=== PATIENT | male | born 1970 | race Caucasian/White ===

== ENCOUNTER 2016-09-19 22:20 | Emergency (ER) | payer BC, MEDICAID ==
[~2016-09-19] VITALS: Ht 175.3 cm; Wt 113.4 kg
[2016-09-19 22:36] VITALS: BP 150/87
[2016-09-19 23:10] LABS: Basophils # (auto) 0 uL; Basophils % (auto) 0.3 % (0.0-2.0); Eosinophils # (auto) 0.1 uL; Eosinophils % (auto) 0.5 % (0.0-7.0); Hematocrit 55.7 % (41.0-53.0); Lymphocytes # (auto) 0.9 uL; Lymphocytes % (auto) 7.6 % (10.0-50.0); Mean Corpuscular Hemoglobin 32.5 pg (28.0-32.0); Mean Corpuscular Hgb Conc. 32.3 g/dL (32.0-36.0); Mean Corpuscular Volume 100.4 fL (80.0-100.0); Mean Platelet Volume 8.5 fL (7.4-10.4); Monocytes # (auto) 1.1 uL; Neutrophils # (auto) 10.2 uL; Neutrophils % (auto) 82.6 % (37.0-80.0); Platelet Count (auto) 230 10^3/uL (140-450); Red Cell Distribution Width 12.8 % (11.6-16.0); White Blood Cell 12.3 10^3/uL (4.4-10.8)
[2016-09-19 23:35] LABS: Amylase 169 U/L (25-115); Anion Gap 5 (5-15); Aspartate Aminotransferase 24 U/L (15-37); BUN/Creatinine Ratio 9.9; Blood Urea Nitrogen 8 mg/dL (7-18); Carbon Dioxide 23 mmol/L (21-32); Chloride 104 mmol/L (98-107); GFR African American 133 mL/min; GFR Non-African American 110 mL/min; Glucose 114 mg/dL (74-106); Potassium 3.6 mmol/L (3.5-5.1); Sodium 132 mmol/L (136-145)
[2016-09-19 23:40] LABS: Alkaline Phosphatase 88 U/L (45-117); Total Protein 8.5 g/dL (6.4-8.2)
== END 2016-09-19 23:43 | disposition left against medical advice (07) ==
LOC: ER 22:25
DX: R10.9 Unspecified abdominal pain (principal); R07.9 Chest pain, unspecified; R11.0 Nausea; Z53.21 Procedure and treatment not carried out due to patient leaving prior to being seen by health care provider
CPT/HCPCS: 36415; 80053; 82150; 83690; 84484; 85025

== ENCOUNTER 2016-11-20 19:08 | Emergency (ER) | payer BC, MEDICAID ==
[~2016-11-20] VITALS: Ht 175.3 cm; Wt 117.9 kg
[2016-11-20 19:37] VITALS: BP 149/104
[2016-11-20 20:33] LABS: Basophils # (auto) 0 uL; Basophils % (auto) 0.5 % (0.0-2.0); Eosinophils # (auto) 0.2 uL; Hematocrit 54.2 % (41.0-53.0); Hemoglobin 18.3 g/dL (13.5-17.5); Lymphocytes # (auto) 2.1 uL; Lymphocytes % (auto) 26.8 % (10.0-50.0); Mean Corpuscular Hemoglobin 33.8 pg (28.0-32.0); Mean Corpuscular Hgb Conc. 33.7 g/dL (32.0-36.0); Mean Corpuscular Volume 100.3 fL (80.0-100.0); Mean Platelet Volume 8.6 fL (7.4-10.4); Monocytes # (auto) 0.9 uL; Monocytes % (auto) 11.6 % (0.0-12.0); Neutrophils # (auto) 4.6 uL; Neutrophils % (auto) 59.1 % (37.0-80.0); Platelet Count (auto) 243 10^3/uL (140-450); Red Cell Distribution Width 13.7 % (11.6-16.0); White Blood Cell 7.7 10^3/uL (4.4-10.8)
[2016-11-20 20:51] LABS: Alkaline Phosphatase 106 U/L (45-117); Anion Gap 10 (5-15); Aspartate Aminotransferase 38 U/L (15-37); BUN/Creatinine Ratio 14.9; Bilirubin, Total 0.4 mg/dL (0.2-1.0); Blood Urea Nitrogen 13 mg/dL (7-18); Calcium 8.9 mg/dL (8.5-10.1); Carbon Dioxide 25 mmol/L (21-32); Chloride 105 mmol/L (98-107); GFR African American 123 mL/min; GFR Non-African American 101 mL/min; Glucose 92 mg/dL (74-106); Magnesium 2.6 mg/dL (1.6-2.6); Sodium 140 mmol/L (136-145); Total Protein 8.3 g/dL (6.4-8.2)
[2016-11-20] MEDS ORDERED: LORazepam 0.5 MG TAB PO ONE (22:30)
== END 2016-11-20 23:31 | disposition home or self-care (01) ==
LOC: ER 19:08
DX: F41.9 Anxiety disorder, unspecified (principal); J31.0 Chronic rhinitis; I10 Essential (primary) hypertension; F17.210 Nicotine dependence, cigarettes, uncomplicated
CPT/HCPCS: 36415; 80053; 83735; 84484; 85025; 93005

== ENCOUNTER 2019-11-22 07:05 | Inpatient (IN) | payer BC, MEDICAID ==
[~2019-11-22] VITALS: Ht 175.3 cm; Wt 123.4 kg
[2019-11-22] MEDS ORDERED: IOHEXOL 300 MG/ML 100ML BOTTLE IJ ONE (07:28)
[2019-11-22 07:39] LABS: Eosinophils # (auto) 0 10 ^3/uL (0-0.8); Eosinophils % (auto) 0.7 % (0.0-7.0); Lymphocytes # (auto) 0.9 10 ^3/uL (0.4-5.4); Monocytes # (auto) 0.8 10 ^3/uL (0-1.3); Red Blood Cells 5.15 10^6/uL (4.5-5.90)
[2019-11-22 07:41] LABS: Basophils # (auto) 0.1 10 ^3/uL (0-0.2); Basophils % (auto) 0.8 % (0.0-2.0); Hematocrit 51.9 % (41.0-53.0); Hemoglobin 18.2 g/dL (13.5-17.5); Mean Corpuscular Hemoglobin 35.4 pg (28.0-32.0); Mean Corpuscular Hgb Conc. 35.1 g/dL (32.0-36.0); Mean Corpuscular Volume 100.9 fL (80.0-100.0); Monocytes % (auto) 11.9 % (0.0-12.0); Neutrophils # (auto) 4.9 10 ^3/uL (1.6-8.6); Neutrophils % (auto) 72.6 % (37.0-80.0); Nucleated Red Blood Cells % 0.2 %; Platelet Count (auto) 190 10^3/uL (140-450); Red Cell Distribution Width 13.3 % (11.8-14.3); White Blood Cell 6.7 10^3/uL (4.4-10.8)
[2019-11-22 07:59] LABS: Albumin 3.8 g/dL (3.4-5.0); Calcium 8.4 mg/dL (8.5-10.1)
[2019-11-22 08:02] LABS: BUN/Creatinine Ratio 8.5; Bilirubin, Total 0.6 mg/dL (0.2-1.0); Total Protein 8.4 g/dL (6.4-8.2)
[2019-11-22 08:22] LABS: Urine WBC None Seen /hpf (0 - 3)
[2019-11-22 08:30] LABS: Urine Bacteria NONE SEEN /hpf (None Seen); Urine Blood Negative /uL (Negative); Urine Specific Gravity 1.033 (1.001-1.035)
[2019-11-22] MEDS ORDERED: ONDANSETRON HCL 4 MG/2 ML VIAL IV ONE (08:45)
[2019-11-22] MEDS ORDERED: MORPHINE SULFATE 4 MG/ML SYR/VIAL IV ONE (08:45)
[2019-11-22] MEDS ORDERED: PIPERACILLIN-TAZOB 3.375GM 100 ML IV ONE (08:45)
[2019-11-22] MEDS ORDERED: NITROGLYCERIN 0.4 MG SL TAB SL PRN (09:30)
[2019-11-22] MEDS ORDERED: MORPHINE SULF INJ 2 MG/ML SYRINGE 1ML IV PRN ×2 (09:30)
[2019-11-22 09:33] LABS: INR 1.05 (0.9-1.15); Partial Thromboplastin Time 28.3 sec (23.64-32.05)
[2019-11-22] MEDS: PANTOPRAZOLE 40 MG/10 ML VIAL INJ IV SCH (10:05)
[2019-11-22 10:30] VITALS: BP 131/86
[2019-11-22] MEDS: FOLIC ACID 1 MG, MULTIPLE VITAMIN 10 ML, MAGNESIUM SULF SDV 50% 8 MEQ, THIAMINE INJ 100... INJ SCH ×5 (12:29)
[2019-11-22 17:00] VITALS: BP 141/70
[2019-11-22] MEDS ORDERED: ENAL2.5T PO (19:26)
[2019-11-22] MEDS ORDERED: ATOR10TA52 PO (19:30)
[2019-11-22 22:29] VITALS: BP 128/75
[2019-11-23 05:00] VITALS: BP 123/84
[2019-11-23 08:00] VITALS: BP 126/85
[2019-11-23] MEDS: PANTOPRAZOLE 40 MG/10 ML VIAL INJ IV SCH (09:23)
[2019-11-23 09:27] VITALS: BP 126/85
[2019-11-23] MEDS: FOLIC ACID 1 MG, MULTIPLE VITAMIN 10 ML, MAGNESIUM SULF SDV 50% 8 MEQ, THIAMINE INJ 100... INJ SCH ×5 (12:21)
[2019-11-23 14:40] VITALS: BP 141/78
[2019-11-23 16:37] VITALS: BP 131/88
[2019-11-23 22:00] VITALS: BP 117/77
[2019-11-23] MEDS: ATORVASTATIN 20 MG TAB PO SCH (23:03)
[2019-11-24] VITALS (59 sets, daily range): BP systolic 92–164; BP diastolic 54–90
[2019-11-24] MEDS: fentaNYL Drip 2500mCg/250mlNS 250 ML IV SCH (03:33)
[2019-11-24] MEDS ORDERED: ceFAZolin 1GM/50ML 50 ML IV ONE (08:34)
[2019-11-24] MEDS ORDERED: BUPIVACAINE W/ EPINEPH 0.25% INJ 50ML MDV ONE (08:50)
[2019-11-24] MEDS ORDERED: METOCLOPRAMIDE HCL 5MG/ml INJ 2ml VIAL IV ONE (09:12)
[2019-11-24] MEDS ORDERED: LIDOCAINE 1% (LOCAL ANESTH.) PF 5ml SDV ONE (09:16)
[2019-11-24] MEDS ORDERED: SUCCINYLCHOLINE CHLORIDE 20 MG/ML 10ML VIAL IV ONE (09:17)
[2019-11-24] MEDS ORDERED: MIDAZOLAM HCL 1MG/1ML-2 ML VIAL ONE ×5 (09:20→11:08)
[2019-11-24] MEDS ORDERED: PROPOFOL 10 MG/ML 20 ML IV ONE (09:22)
[2019-11-24] MEDS ORDERED: fentaNYL CITRATE 100 MCG/2 ML VL ONE (09:36)
[2019-11-24] MEDS ORDERED: DexAMETHasone SOD PHOS 10MG/1ML VIAL INJ ONE (09:48)
[2019-11-24] MEDS ORDERED: NEOSTIGMINE 1 MG/ML INJ (10mg/10ML VIAL) ONE (10:03)
[2019-11-24] MEDS ORDERED: GLYCOPYRROLATE 0.2 MG/ML 1ML VIAL ONE (10:03)
[2019-11-24] MEDS ORDERED: LORazepam MDV 2MG/ML 50 MG in SODIUM CHL 0.9% 25 ML IV SCH (10:24)
[2019-11-24] MEDS ORDERED: MIDAZOLAM HCL 1MG/1ML-2 ML VIAL IV ONE (10:32)
[2019-11-24] MEDS: PANTOPRAZOLE 40 MG/10 ML VIAL INJ IV SCH (10:41)
[2019-11-24] MEDS: ENALAPRIL MALEATE 10 MG TAB PO SCH (10:41)
[2019-11-24] MEDS ORDERED: HYDROmorphone HCL 2 MG/ML VL ONE (10:42)
[2019-11-24] MEDS ORDERED: HYDROmorphone HCL 2 MG/ML VL IV PRN ×2 (10:45)
[2019-11-24] MEDS ORDERED: MIDAZOLAM HCL 1MG/1ML-2 ML VIAL IV PRN (10:45)
[2019-11-24] MEDS ORDERED: hydrALAZINE HCL 20 MG/ML VL IV PRN (10:45)
[2019-11-24] MEDS ORDERED: MIDAZOLAM HCL 5 MG/ML-1ML VIAL IV ONE (11:08)
[2019-11-24] MEDS ORDERED: ALBUTEROL SULF 2.5 MG/0.5ML(0.5%) NEB SOLN ONE (11:09)
[2019-11-24] MEDS ORDERED: IPRATROPIUM BROM 0.5 MG/2.5ML INH SOL NEB ONE (11:10)
[2019-11-24] MEDS ORDERED: ALBUTEROL SULF 2.5 MG/0.5ML(0.5%) NEB SOLN NEB ONE (11:10)
[2019-11-24] MEDS ORDERED: IPRATROPIUM BROM 0.5 MG/2.5ML INH SOL ONE (11:10)
[2019-11-24] MEDS ORDERED: BUMETANIDE 2.5mg/10ml (0.25 mg/ml) INJ IV ONE (12:15)
[2019-11-24] MEDS: [UNRECOGNIZED DRUG - OTHER] INJ SCH (13:45)
[2019-11-24] MEDS: MULTIPLE VITAMIN INJ SCH (13:45)
[2019-11-24] MEDS: MAGNESIUM SULF INJ SCH (13:45)
[2019-11-24] MEDS: FOLIC ACID INJ SCH (13:45)
[2019-11-24] MEDS: IPRATROPIUM BROM 0.5 MG/2.5ML INH SOL NEB SCH ×3 (13:46→22:09)
[2019-11-24] MEDS: ALBUTEROL SULF 2.5 MG/0.5ML(0.5%) NEB SOLN NEB SCH ×3 (13:46→22:09)
[2019-11-24] MEDS: MIDAZOLAM DRIP 50 mg/50mL 50 ML IV SCH (22:00)
[2019-11-24] MEDS: ATORVASTATIN 20 MG TAB PO SCH (22:00)
[2019-11-25] VITALS (105 sets, daily range): BP systolic 92–135; BP diastolic 40–93
[2019-11-25] MEDS: ALBUTEROL SULF 2.5 MG/0.5ML(0.5%) NEB SOLN NEB SCH ×6 (01:57→22:30)
[2019-11-25] MEDS: IPRATROPIUM BROM 0.5 MG/2.5ML INH SOL NEB SCH ×6 (01:57→22:30)
[2019-11-25] MEDS: ceFAZolin 1GM/50ML 50 ML IV SCH ×3 (02:00→21:54)
[2019-11-25] MEDS ORDERED: TPN PER PHARMACY 0 ML IV SCH (08:00)
[2019-11-25 08:44] LABS: Eosinophils # (auto) 0 10 ^3/uL (0-0.8); Lymphocytes # (auto) 0.8 10 ^3/uL (0.4-5.4); Mean Corpuscular Hgb Conc. 33.6 g/dL (32.0-36.0); Monocytes # (auto) 1.5 10 ^3/uL (0-1.3); Monocytes % (auto) 11.1 % (0.0-12.0); Nucleated Red Blood Cells % 0.1 %
[2019-11-25 08:46] LABS: Basophils # (auto) 0 10 ^3/uL (0-0.2); Basophils % (auto) 0.3 % (0.0-2.0); Hematocrit 52.2 % (41.0-53.0); Hemoglobin 17.5 g/dL (13.5-17.5); Lymphocytes % (auto) 5.8 % (10.0-50.0); Mean Corpuscular Hemoglobin 34.3 pg (28.0-32.0); Mean Corpuscular Volume 102.1 fL (80.0-100.0); Neutrophils % (auto) 82.8 % (37.0-80.0); Platelet Count (auto) 257 10^3/uL (140-450); Red Blood Cells 5.11 10^6/uL (4.5-5.90); White Blood Cell 13.3 10^3/uL (4.4-10.8)
[2019-11-25 09:21] LABS: Albumin 3.7 g/dL (3.4-5.0); Calcium 8.1 mg/dL (8.5-10.1); Potassium 4.8 mmol/L (3.5-5.1)
[2019-11-25 09:23] LABS: Bilirubin, Total 0.6 mg/dL (0.2-1.0); Total Protein 8.2 g/dL (6.4-8.2)
[2019-11-25 09:26] LABS: Magnesium 2.7 mg/dL (1.6-2.6)
[2019-11-25 09:31] LABS: Pre Albumin 26.4 mg/dL (20.0-40.0)
[2019-11-25 09:58] LABS: INR 1.07 (0.9-1.15); Partial Thromboplastin Time 26.2 sec (23.64-32.05)
[2019-11-25] MEDS: ENALAPRIL MALEATE 10 MG TAB PO SCH (10:00)
[2019-11-25] MEDS: PANTOPRAZOLE 40 MG/10 ML VIAL INJ IV SCH (10:02)
[2019-11-25] MEDS: fentaNYL Drip 2500mCg/250mlNS 250 ML IV SCH ×2 (11:09→20:55)
[2019-11-25] MEDS: InsuLIN REG 1unit/0.01ml Soln (100units/ml) SC SCH ×2 (12:00→17:59)
[2019-11-25] MEDS ORDERED: DEXTROSE (50%) 50ML SYRG IV SCH (12:00)
[2019-11-25] MEDS: ACCU-CHEK COMFORT CURVE STRIP VI SCH ×2 (12:09→17:50)
[2019-11-25] MEDS: FOLIC ACID INJ SCH (12:14)
[2019-11-25] MEDS: [UNRECOGNIZED DRUG - OTHER] INJ SCH (12:14)
[2019-11-25] MEDS: MAGNESIUM SULF INJ SCH (12:14)
[2019-11-25] MEDS: MULTIPLE VITAMIN INJ SCH (12:14)
[2019-11-25] MEDS ORDERED: LIDOCAINE 1% (LOCAL ANESTH.) PF 5ml SDV ID ONE (13:15)
[2019-11-25] MEDS: MIDAZOLAM DRIP 50 mg/50mL 50 ML IV SCH (13:23)
[2019-11-25] MEDS ORDERED: PPN PER PHARMACY IV NR ×7 (20:00)
[2019-11-25] MEDS: ATORVASTATIN 20 MG TAB PO SCH (21:53)
[2019-11-25] MEDS: SODIUM CHLOR 0.9% PF (SALINE LOCK) 10ML VIAL/SYR IV SCH (22:00)
[2019-11-26] VITALS (93 sets, daily range): BP systolic 88–121; BP diastolic 46–75
[2019-11-26] MEDS: ALBUTEROL SULF 2.5 MG/0.5ML(0.5%) NEB SOLN NEB SCH ×6 (02:13→22:31)
[2019-11-26] MEDS: IPRATROPIUM BROM 0.5 MG/2.5ML INH SOL NEB SCH ×6 (02:13→22:31)
[2019-11-26 04:51] LABS: Eosinophils # (auto) 0 10 ^3/uL (0-0.8); Eosinophils % (auto) 0.5 % (0.0-7.0); Hemoglobin 15.3 g/dL (13.5-17.5); Neutrophils # (auto) 6.2 10 ^3/uL (1.6-8.6)
[2019-11-26 04:54] LABS: Basophils # (auto) 0 10 ^3/uL (0-0.2); Basophils % (auto) 0.5 % (0.0-2.0); Hematocrit 44.3 % (41.0-53.0); Lymphocytes % (auto) 12.4 % (10.0-50.0); Mean Corpuscular Hemoglobin 35.3 pg (28.0-32.0); Mean Corpuscular Hgb Conc. 34.5 g/dL (32.0-36.0); Mean Corpuscular Volume 102.3 fL (80.0-100.0); Monocytes % (auto) 12.3 % (0.0-12.0); Neutrophils % (auto) 74.3 % (37.0-80.0); Nucleated Red Blood Cells % 0.2 %; Platelet Count (auto) 164 10^3/uL (140-450); Red Blood Cells 4.34 10^6/uL (4.5-5.90); Red Cell Distribution Width 12.8 % (11.8-14.3); White Blood Cell 8.3 10^3/uL (4.4-10.8)
[2019-11-26 05:08] LABS: Albumin 3.1 g/dL (3.4-5.0); Calcium 7.9 mg/dL (8.5-10.1); Potassium 4.2 mmol/L (3.5-5.1)
[2019-11-26 05:12] LABS: Bilirubin, Total 0.6 mg/dL (0.2-1.0)
[2019-11-26 05:17] LABS: Magnesium 2.6 mg/dL (1.6-2.6); Phosphorus 3.4 mg/dL (2.5-4.90)
[2019-11-26] MEDS: ceFAZolin 1GM/50ML 50 ML IV SCH ×3 (05:45→22:25)
[2019-11-26] MEDS: ACCU-CHEK COMFORT CURVE STRIP VI SCH ×4 (05:45→17:57)
[2019-11-26] MEDS: InsuLIN REG 1unit/0.01ml Soln (100units/ml) SC SCH ×4 (05:55→17:57)
[2019-11-26] MEDS: MIDAZOLAM DRIP 50 mg/50mL 50 ML IV SCH ×3 (08:57→17:58)
[2019-11-26] MEDS: PANTOPRAZOLE 40 MG/10 ML VIAL INJ IV SCH (10:29)
[2019-11-26] MEDS: ENALAPRIL MALEATE 10 MG TAB PO SCH (10:30)
[2019-11-26] MEDS: SODIUM CHLOR 0.9% PF (SALINE LOCK) 10ML VIAL/SYR IV SCH ×2 (10:30→22:25)
[2019-11-26] MEDS: MULTIPLE VITAMIN INJ SCH (12:42)
[2019-11-26] MEDS: [UNRECOGNIZED DRUG - OTHER] INJ SCH (12:42)
[2019-11-26] MEDS: MAGNESIUM SULF INJ SCH (12:42)
[2019-11-26] MEDS: FOLIC ACID INJ SCH (12:42)
[2019-11-26] MEDS: fentaNYL Drip 2500mCg/250mlNS 250 ML IV SCH (18:03)
[2019-11-26] MEDS ORDERED: TPN PER PHARMACY IV NR ×10 (20:00)
[2019-11-26] MEDS: ATORVASTATIN 20 MG TAB PO SCH (22:25)
[2019-11-27] VITALS (110 sets, daily range): BP systolic 87–164; BP diastolic 45–92
[2019-11-27] MEDS: ALBUTEROL SULF 2.5 MG/0.5ML(0.5%) NEB SOLN NEB SCH ×6 (02:24→22:32)
[2019-11-27] MEDS: IPRATROPIUM BROM 0.5 MG/2.5ML INH SOL NEB SCH ×6 (02:24→22:32)
[2019-11-27] MEDS ORDERED: SODIUM CHLORIDE 0.9% 1,000 ML IV ONE (02:50)
[2019-11-27 05:01] LABS: Basophils # (auto) 0 10 ^3/uL (0-0.2); Eosinophils # (auto) 0.1 10 ^3/uL (0-0.8); Monocytes # (auto) 1.1 10 ^3/uL (0-1.3); Neutrophils # (auto) 4.9 10 ^3/uL (1.6-8.6)
[2019-11-27 05:03] LABS: Basophils % (auto) 0.4 % (0.0-2.0); Hematocrit 39.6 % (41.0-53.0); Hemoglobin 13.5 g/dL (13.5-17.5); Lymphocytes % (auto) 14.5 % (10.0-50.0); Mean Corpuscular Hemoglobin 35.2 pg (28.0-32.0); Mean Corpuscular Hgb Conc. 34.1 g/dL (32.0-36.0); Mean Corpuscular Volume 103.2 fL (80.0-100.0); Monocytes % (auto) 15.7 % (0.0-12.0); Neutrophils % (auto) 68.4 % (37.0-80.0); Platelet Count (auto) 149 10^3/uL (140-450); Red Blood Cells 3.83 10^6/uL (4.5-5.90); White Blood Cell 7.1 10^3/uL (4.4-10.8)
[2019-11-27 05:16] LABS: Potassium 3.9 mmol/L (3.5-5.1)
[2019-11-27 05:24] LABS: Albumin 2.5 g/dL (3.4-5.0); BUN/Creatinine Ratio 18.4; Bilirubin, Total 0.7 mg/dL (0.2-1.0); Calcium 7.2 mg/dL (8.5-10.1); Magnesium 2.3 mg/dL (1.6-2.6); Phosphorus 2.9 mg/dL (2.5-4.90); Total Protein 5.9 g/dL (6.4-8.2)
[2019-11-27] MEDS: ACCU-CHEK COMFORT CURVE STRIP VI SCH ×4 (05:54→18:11)
[2019-11-27] MEDS: InsuLIN REG 1unit/0.01ml Soln (100units/ml) SC SCH ×4 (05:54→18:00)
[2019-11-27] MEDS: ceFAZolin 1GM/50ML 50 ML IV SCH ×3 (05:54→22:12)
[2019-11-27] MEDS: PANTOPRAZOLE 40 MG/10 ML VIAL INJ IV SCH (10:52)
[2019-11-27] MEDS: SODIUM CHLOR 0.9% PF (SALINE LOCK) 10ML VIAL/SYR IV SCH ×2 (10:52→22:12)
[2019-11-27] MEDS: SOD CHL 0.45% WITH 20MEQ KCL 1,000 ML IV SCH (10:53)
[2019-11-27] MEDS ORDERED: CALCIUM GLUC 4.65meq/50ml D5AE 50 ML IV ONE (11:00)
[2019-11-27] MEDS ORDERED: SODIUM BICARBONATE 8.4 % INJ 50ML VIAL IV ONE (12:15)
[2019-11-27] MEDS ORDERED: EPINEPHrine HCL 1 MG/1 ML AMP ONE (12:25)
[2019-11-27] MEDS ORDERED: LIDOCAINE 2%HCL (LOCAL ANESTH.) INJ 20ML MDV ONE (12:25)
[2019-11-27] MEDS ORDERED: SODIUM CHLORIDE LOCK 0 ML ONE (12:25)
[2019-11-27] MEDS ORDERED: LIDOCAINE HCL 2% TOP JELLY 5ML TOP ONE (12:26)
[2019-11-27] MEDS ORDERED: SODIUM CHL 3% 500 ML BAG IN ONE (12:30)
[2019-11-27] MEDS: ACETYLCYSTEINE 20%(200MG/ML) SOL 4ML NEB SCH ×2 (13:41→22:33)
[2019-11-27] MEDS ORDERED: ACETYLCYSTEINE 20%(200MG/ML) SOL 4ML ONE (13:56)
[2019-11-27] MEDS ORDERED: ACETYLCYSTEINE 10 %(100MG/ML) SOL 4ML ONE (13:56)
[2019-11-27] MEDS ORDERED: ROCURONIUM 10MG/ML 10ML VIAL IV ONE (14:32)
[2019-11-27] MEDS: PROPOFOL 100 ML IV SCH (14:50)
[2019-11-27] MEDS: fentaNYL Drip 2500mCg/250mlNS 250 ML IV SCH (17:00)
[2019-11-27] MEDS: ACETAMINOPHEN 650 mg PER 20 mL UD GT PRN (18:06)
[2019-11-27] MEDS: MIDAZOLAM DRIP 50 mg/50mL 50 ML IV SCH ×2 (18:07→22:13)
[2019-11-27] MEDS ORDERED: TPN PER PHARMACY IV NR ×11 (20:00)
[2019-11-27] MEDS: NOREPINEPHRINE 8 MG/250ML KIT 250 ML IV SCH (21:18)
[2019-11-27] MEDS: ATORVASTATIN 20 MG TAB PO SCH (22:12)
[2019-11-28] VITALS (104 sets, daily range): BP systolic 96–154; BP diastolic 47–80
[2019-11-28] MEDS: InsuLIN REG 1unit/0.01ml Soln (100units/ml) SC SCH ×4 (00:10→17:51)
[2019-11-28] MEDS: ACCU-CHEK COMFORT CURVE STRIP VI SCH ×4 (00:10→17:50)
[2019-11-28] MEDS: IPRATROPIUM BROM 0.5 MG/2.5ML INH SOL NEB SCH ×6 (02:23→21:55)
[2019-11-28] MEDS: ALBUTEROL SULF 2.5 MG/0.5ML(0.5%) NEB SOLN NEB SCH ×6 (02:23→21:55)
[2019-11-28 04:12] LABS: Basophils # (auto) 0.1 10 ^3/uL (0-0.2); Eosinophils # (auto) 0.2 10 ^3/uL (0-0.8); Nucleated Red Blood Cells % 0.1 %
[2019-11-28 04:14] LABS: Basophils % (auto) 0.7 % (0.0-2.0); Hematocrit 42.1 % (41.0-53.0); Hemoglobin 14.3 g/dL (13.5-17.5); Lymphocytes # (auto) 1.2 10 ^3/uL (0.4-5.4); Mean Corpuscular Hemoglobin 34.8 pg (28.0-32.0); Mean Corpuscular Hgb Conc. 34.1 g/dL (32.0-36.0); Mean Corpuscular Volume 102.1 fL (80.0-100.0); Monocytes # (auto) 1.3 10 ^3/uL (0-1.3); Monocytes % (auto) 14.1 % (0.0-12.0); Neutrophils # (auto) 6.5 10 ^3/uL (1.6-8.6); Neutrophils % (auto) 70.2 % (37.0-80.0); Platelet Count (auto) 177 10^3/uL (140-450); Red Blood Cells 4.12 10^6/uL (4.5-5.90); White Blood Cell 9.3 10^3/uL (4.4-10.8)
[2019-11-28 04:45] LABS: Albumin 2.7 g/dL (3.4-5.0); Calcium 7.4 mg/dL (8.5-10.1); Magnesium 2.1 mg/dL (1.6-2.6); Potassium 3.8 mmol/L (3.5-5.1)
[2019-11-28 04:49] LABS: BUN/Creatinine Ratio 14.5; Bilirubin, Total 0.8 mg/dL (0.2-1.0); Phosphorus 3.5 mg/dL (2.5-4.90); Total Protein 6.6 g/dL (6.4-8.2)
[2019-11-28] MEDS: SOD CHL 0.45% WITH 20MEQ KCL 1,000 ML IV SCH (05:33)
[2019-11-28] MEDS: ceFAZolin 1GM/50ML 50 ML IV SCH ×3 (05:33→22:00)
[2019-11-28] MEDS: ACETYLCYSTEINE 20%(200MG/ML) SOL 4ML NEB SCH ×3 (06:12→21:55)
[2019-11-28] MEDS: SODIUM CHLOR 0.9% PF (SALINE LOCK) 10ML VIAL/SYR IV SCH ×2 (10:14→22:00)
[2019-11-28] MEDS: PANTOPRAZOLE 40 MG/10 ML VIAL INJ IV SCH (10:14)
[2019-11-28] MEDS: MIDAZOLAM DRIP 50 mg/50mL 50 ML IV SCH ×4 (12:20→21:10)
[2019-11-28] MEDS: PROPOFOL 100 ML IV SCH ×4 (13:32→22:14)
[2019-11-28] MEDS: fentaNYL Drip 2500mCg/250mlNS 250 ML IV SCH (16:05)
[2019-11-28] MEDS ORDERED: ACETAMINOPHEN 650 MG RECT SUPP PR PRN (18:00)
[2019-11-28] MEDS: ACETAMINOPHEN 650 MG RECT SUPP PR PRN (18:44)
[2019-11-28] MEDS ORDERED: TPN PER PHARMACY IV NR ×10 (20:00)
[2019-11-28] MEDS: NOREPINEPHRINE 8 MG/250ML KIT 250 ML IV SCH (21:18)
[2019-11-28] MEDS: ATORVASTATIN 20 MG TAB PO SCH (22:00)
[2019-11-29] VITALS (100 sets, daily range): BP systolic 90–169; BP diastolic 39–101
[2019-11-29] MEDS: ACCU-CHEK COMFORT CURVE STRIP VI SCH ×4 (00:30→18:05)
[2019-11-29] MEDS: InsuLIN REG 1unit/0.01ml Soln (100units/ml) SC SCH ×4 (00:30→18:08)
[2019-11-29] MEDS: PROPOFOL 100 ML IV SCH ×2 (00:35→04:33)
[2019-11-29] MEDS: MIDAZOLAM DRIP 50 mg/50mL 50 ML IV SCH ×2 (00:35→05:58)
[2019-11-29] MEDS: SOD CHL 0.45% WITH 20MEQ KCL 1,000 ML IV SCH ×2 (00:36→22:00)
[2019-11-29] MEDS ORDERED: VANCOMYCIN 1GM/250ML 250 ML IV ONE (01:15)
[2019-11-29] MEDS ORDERED: VANCOMYCIN PER PHARMACY 0 MG IV SCH (01:15)
[2019-11-29] MEDS: ALBUTEROL SULF 2.5 MG/0.5ML(0.5%) NEB SOLN NEB SCH ×6 (02:16→22:05)
[2019-11-29] MEDS: IPRATROPIUM BROM 0.5 MG/2.5ML INH SOL NEB SCH ×6 (02:16→22:05)
[2019-11-29] MEDS: fentaNYL Drip 2500mCg/250mlNS 250 ML IV SCH (04:25)
[2019-11-29] MEDS: ceFAZolin 1GM/50ML 50 ML IV SCH (05:30)
[2019-11-29] MEDS: PIPERACILLIN-TAZOB 3.375GM 100 ML IV SCH ×3 (05:57→18:17)
[2019-11-29] MEDS: ACETYLCYSTEINE 20%(200MG/ML) SOL 4ML NEB SCH ×3 (06:22→22:05)
[2019-11-29 07:12] LABS: Potassium 4.5 mmol/L (3.5-5.1)
[2019-11-29 07:20] LABS: Albumin 2.4 g/dL (3.4-5.0); BUN/Creatinine Ratio 10.7; Bilirubin, Total 0.6 mg/dL (0.2-1.0); Calcium 7.6 mg/dL (8.5-10.1); Magnesium 2.5 mg/dL (1.6-2.6); Phosphorus 3.5 mg/dL (2.5-4.90); Total Protein 6.4 g/dL (6.4-8.2)
[2019-11-29] MEDS: ACETAMINOPHEN 650 mg PER 20 mL UD GT PRN (08:20)
[2019-11-29] MEDS: ACETAMINOPHEN 650 MG RECT SUPP PR PRN ×2 (08:20→17:24)
[2019-11-29 09:39] LABS: Basophils # (auto) 0 10 ^3/uL (0-0.2); Eosinophils # (auto) 0.2 10 ^3/uL (0-0.8); Lymphocytes # (auto) 0.6 10 ^3/uL (0.4-5.4); Monocytes # (auto) 0.9 10 ^3/uL (0-1.3)
[2019-11-29 09:41] LABS: Basophils % (auto) 0.3 % (0.0-2.0); Eosinophils % (auto) 2.5 % (0.0-7.0); Hematocrit 42.4 % (41.0-53.0); Hemoglobin 14.3 g/dL (13.5-17.5); Mean Corpuscular Hemoglobin 34.6 pg (28.0-32.0); Mean Corpuscular Hgb Conc. 33.6 g/dL (32.0-36.0); Mean Corpuscular Volume 102.8 fL (80.0-100.0); Monocytes % (auto) 9.6 % (0.0-12.0); Neutrophils # (auto) 7.6 10 ^3/uL (1.6-8.6); Neutrophils % (auto) 81.6 % (37.0-80.0); Platelet Count (auto) 191 10^3/uL (140-450); Red Blood Cells 4.13 10^6/uL (4.5-5.90); Red Cell Distribution Width 13.1 % (11.8-14.3); White Blood Cell 9.3 10^3/uL (4.4-10.8)
[2019-11-29] MEDS: PANTOPRAZOLE 40 MG/10 ML VIAL INJ IV SCH (09:47)
[2019-11-29] MEDS: VANCOMYCIN 1GM/250ML 250 ML IV SCH ×2 (09:47→16:49)
[2019-11-29] MEDS: SODIUM CHLOR 0.9% PF (SALINE LOCK) 10ML VIAL/SYR IV SCH ×2 (10:01→21:09)
[2019-11-29] MEDS ORDERED: TPN PER PHARMACY IV NR ×10 (20:00)
[2019-11-29] MEDS: ATORVASTATIN 20 MG TAB PO SCH (21:08)
[2019-11-29] MEDS: NOREPINEPHRINE 8 MG/250ML KIT 250 ML IV SCH (21:18)
[2019-11-30] VITALS (98 sets, daily range): BP systolic 96–160; BP diastolic 56–92
[2019-11-30] MEDS: PIPERACILLIN-TAZOB 3.375GM 100 ML IV SCH ×4 (00:04→17:23)
[2019-11-30] MEDS: ACETAMINOPHEN 650 mg PER 20 mL UD GT PRN ×3 (00:07→21:48)
[2019-11-30] MEDS: MEPERIDINE HCL (25 MG/ML) 1ML VIAL IM PRN ×2 (00:17→21:41)
[2019-11-30] MEDS: InsuLIN REG 1unit/0.01ml Soln (100units/ml) SC SCH ×4 (00:34→17:24)
[2019-11-30] MEDS: VANCOMYCIN 1GM/250ML 250 ML IV SCH ×4 (01:31→21:40)
[2019-11-30] MEDS: IPRATROPIUM BROM 0.5 MG/2.5ML INH SOL NEB SCH ×6 (02:01→22:20)
[2019-11-30] MEDS: ALBUTEROL SULF 2.5 MG/0.5ML(0.5%) NEB SOLN NEB SCH ×6 (02:01→22:20)
[2019-11-30 02:27] LABS: Basophils # (auto) 0 10 ^3/uL (0-0.2); Basophils % (auto) 0.4 % (0.0-2.0); Eosinophils # (auto) 0.2 10 ^3/uL (0-0.8); Eosinophils % (auto) 2.1 % (0.0-7.0); Hemoglobin 14.1 g/dL (13.5-17.5); Lymphocytes # (auto) 0.4 10 ^3/uL (0.4-5.4); Lymphocytes % (auto) 4.7 % (10.0-50.0); Mean Corpuscular Hemoglobin 34.3 pg (28.0-32.0); Mean Corpuscular Hgb Conc. 33.6 g/dL (32.0-36.0); Mean Corpuscular Volume 102.1 fL (80.0-100.0); Monocytes # (auto) 1.1 10 ^3/uL (0-1.3); Monocytes % (auto) 11.8 % (0.0-12.0); Neutrophils # (auto) 7.7 10 ^3/uL (1.6-8.6); Platelet Count (auto) 184 10^3/uL (140-450); Red Blood Cells 4.11 10^6/uL (4.5-5.90); White Blood Cell 9.5 10^3/uL (4.4-10.8)
[2019-11-30 02:44] LABS: Albumin 2.3 g/dL (3.4-5.0); BUN/Creatinine Ratio 10.9; Calcium 7.7 mg/dL (8.5-10.1); Magnesium 2.1 mg/dL (1.6-2.6); Potassium 4.5 mmol/L (3.5-5.1)
[2019-11-30 02:46] LABS: Bilirubin, Total 0.9 mg/dL (0.2-1.0); Phosphorus 2.9 mg/dL (2.5-4.90); Total Protein 6.5 g/dL (6.4-8.2)
[2019-11-30] MEDS: MIDAZOLAM DRIP 50 mg/50mL 50 ML IV SCH ×3 (05:16→15:52)
[2019-11-30] MEDS: fentaNYL Drip 2500mCg/250mlNS 250 ML IV SCH ×2 (05:47→15:51)
[2019-11-30] MEDS: ACCU-CHEK COMFORT CURVE STRIP VI SCH ×4 (05:54→17:23)
[2019-11-30] MEDS: ACETYLCYSTEINE 20%(200MG/ML) SOL 4ML NEB SCH ×3 (06:20→22:20)
[2019-11-30] MEDS: SODIUM CHLOR 0.9% PF (SALINE LOCK) 10ML VIAL/SYR IV SCH ×2 (09:24→22:10)
[2019-11-30] MEDS: PANTOPRAZOLE 40 MG/10 ML VIAL INJ IV SCH (09:24)
[2019-11-30] MEDS: PROPOFOL 100 ML IV SCH (13:32)
[2019-11-30] MEDS: SOD CHL 0.45% WITH 20MEQ KCL 1,000 ML IV SCH (15:45)
[2019-11-30] MEDS ORDERED: FUROSEMIDE 100 MG/10ML VIAL IV ONE (19:15)
[2019-11-30] MEDS ORDERED: TPN PER PHARMACY IV NR ×11 (20:00)
[2019-11-30] MEDS: AZITHROMYCIN 500MG/ 250ML 250 ML IV SCH (20:33)
[2019-11-30] MEDS: NOREPINEPHRINE 8 MG/250ML KIT 250 ML IV SCH (21:18)
[2019-11-30] MEDS: ATORVASTATIN 20 MG TAB PO SCH (22:10)
[2019-12-01] VITALS (94 sets, daily range): BP systolic 98–156; BP diastolic 53–86
[2019-12-01] MEDS: PIPERACILLIN-TAZOB 3.375GM 100 ML IV SCH ×4 (00:29→17:28)
[2019-12-01] MEDS: InsuLIN REG 1unit/0.01ml Soln (100units/ml) SC SCH ×4 (01:03→17:36)
[2019-12-01] MEDS: ALBUTEROL SULF 2.5 MG/0.5ML(0.5%) NEB SOLN NEB SCH ×6 (02:16→22:05)
[2019-12-01] MEDS: IPRATROPIUM BROM 0.5 MG/2.5ML INH SOL NEB SCH ×6 (02:16→22:05)
[2019-12-01] MEDS: MIDAZOLAM DRIP 50 mg/50mL 50 ML IV SCH ×3 (02:30→16:35)
[2019-12-01] MEDS: VANCOMYCIN 1GM/250ML 250 ML IV SCH ×3 (03:45→10:49)
[2019-12-01 05:11] LABS: Potassium 3.9 mmol/L (3.5-5.1)
[2019-12-01 05:16] LABS: Albumin 2.3 g/dL (3.4-5.0); Bilirubin, Total 0.8 mg/dL (0.2-1.0); Calcium 8.2 mg/dL (8.5-10.1); Magnesium 2.3 mg/dL (1.6-2.6); Phosphorus 3.4 mg/dL (2.5-4.90); Total Protein 6.9 g/dL (6.4-8.2)
[2019-12-01] MEDS: ACETYLCYSTEINE 20%(200MG/ML) SOL 4ML NEB SCH ×3 (05:57→22:06)
[2019-12-01 05:58] LABS: Eosinophils # (auto) 0.2 10 ^3/uL (0-0.8); Hemoglobin 14.5 g/dL (13.5-17.5); Lymphocytes # (auto) 0.4 10 ^3/uL (0.4-5.4); Neutrophils # (auto) 6.9 10 ^3/uL (1.6-8.6); White Blood Cell 8.6 10^3/uL (4.4-10.8)
[2019-12-01 06:00] LABS: Basophils # (auto) 0.1 10 ^3/uL (0-0.2); Basophils % (auto) 0.7 % (0.0-2.0); Eosinophils % (auto) 2.4 % (0.0-7.0); Hematocrit 42.4 % (41.0-53.0); Lymphocytes % (auto) 5.1 % (10.0-50.0); Mean Corpuscular Hemoglobin 34.9 pg (28.0-32.0); Mean Corpuscular Hgb Conc. 34.3 g/dL (32.0-36.0); Mean Corpuscular Volume 101.9 fL (80.0-100.0); Monocytes # (auto) 1.1 10 ^3/uL (0-1.3); Monocytes % (auto) 12.2 % (0.0-12.0); Neutrophils % (auto) 79.6 % (37.0-80.0); Platelet Count (auto) 182 10^3/uL (140-450); Red Blood Cells 4.16 10^6/uL (4.5-5.90); Red Cell Distribution Width 12.7 % (11.8-14.3)
[2019-12-01] MEDS: ACCU-CHEK COMFORT CURVE STRIP VI SCH ×4 (06:00→17:30)
[2019-12-01] MEDS: fentaNYL Drip 2500mCg/250mlNS 250 ML IV SCH ×2 (07:01→17:27)
[2019-12-01] MEDS: PANTOPRAZOLE 40 MG/10 ML VIAL INJ IV SCH (08:37)
[2019-12-01] MEDS: SODIUM CHLOR 0.9% PF (SALINE LOCK) 10ML VIAL/SYR IV SCH ×2 (08:37→22:00)
[2019-12-01] MEDS: AZITHROMYCIN 500MG/ 250ML 250 ML IV SCH (08:37)
[2019-12-01] MEDS ORDERED: FUROSEMIDE 100 MG/10ML VIAL IV ONE (10:00)
[2019-12-01] MEDS: ACETAMINOPHEN 650 mg PER 20 mL UD GT PRN ×2 (10:48→18:36)
[2019-12-01] MEDS: PROPOFOL 100 ML IV SCH (13:32)
[2019-12-01] MEDS: FUROSEMIDE 100 MG/10ML VIAL IV SCH (17:29)
[2019-12-01 18:14] LABS: Magnesium 2.2 mg/dL (1.6-2.6); Potassium 3.6 mmol/L (3.5-5.1)
[2019-12-01] MEDS ORDERED: MEPERIDINE HCL (25 MG/ML) 1ML VIAL IV PRN (18:30)
[2019-12-01] MEDS ORDERED: TPN*HIGH CONC* PER PHARMACY IV NR ×11 (20:00)
[2019-12-01] MEDS ORDERED: TPN PER PHARMACY IV NR ×11 (20:00)
[2019-12-01] MEDS: NOREPINEPHRINE 8 MG/250ML KIT 250 ML IV SCH (21:18)
[2019-12-01] MEDS: ATORVASTATIN 20 MG TAB PO SCH (22:13)
[2019-12-01] MEDS ORDERED: VANCOMYCIN PER PHARMACY 0 MG IV SCH (22:30)
[2019-12-01] MEDS ORDERED: fentaNYL Drip 2500mCg/250mlNS 250 ML IV SCH (23:48)
[2019-12-02] VITALS (100 sets, daily range): BP systolic 90–142; BP diastolic 42–70
[2019-12-02] MEDS: ALBUTEROL SULF 2.5 MG/0.5ML(0.5%) NEB SOLN NEB SCH ×6 (02:08→22:11)
[2019-12-02] MEDS: IPRATROPIUM BROM 0.5 MG/2.5ML INH SOL NEB SCH ×6 (02:08→22:11)
[2019-12-02 04:36] LABS: Potassium 3.5 mmol/L (3.5-5.1)
[2019-12-02 04:42] LABS: Albumin 2.1 g/dL (3.4-5.0); BUN/Creatinine Ratio 13.4; Bilirubin, Total 0.7 mg/dL (0.2-1.0); Calcium 7.9 mg/dL (8.5-10.1); Magnesium 2.1 mg/dL (1.6-2.6); Total Protein 6.6 g/dL (6.4-8.2)
[2019-12-02] MEDS: MIDAZOLAM DRIP 50 mg/50mL 50 ML IV SCH ×4 (05:02→16:55)
[2019-12-02] MEDS: PIPERACILLIN-TAZOB 3.375GM 100 ML IV SCH ×4 (05:57→18:07)
[2019-12-02] MEDS: FUROSEMIDE 100 MG/10ML VIAL IV SCH ×2 (05:57→18:07)
[2019-12-02] MEDS: VANCOMYCIN 1GM/250ML 250 ML IV SCH (05:57)
[2019-12-02] MEDS: ACCU-CHEK COMFORT CURVE STRIP VI SCH ×4 (06:00→18:08)
[2019-12-02] MEDS: InsuLIN REG 1unit/0.01ml Soln (100units/ml) SC SCH ×4 (06:00→18:11)
[2019-12-02] MEDS: ACETYLCYSTEINE 20%(200MG/ML) SOL 4ML NEB SCH ×3 (06:47→22:11)
[2019-12-02] MEDS ORDERED: Jevity 1.2 Cal/Fiber 1 Liter GT SCH (09:15)
[2019-12-02] MEDS: PANTOPRAZOLE 40 MG/10 ML VIAL INJ IV SCH (11:04)
[2019-12-02] MEDS: METOCLOPRAMIDE HCL 5MG/ml INJ 2ml VIAL IV SCH ×2 (11:05→21:36)
[2019-12-02] MEDS: SODIUM CHLOR 0.9% PF (SALINE LOCK) 10ML VIAL/SYR IV SCH ×2 (11:06→21:37)
[2019-12-02] MEDS: LINEZOLID 600MG/300ML 300 ML IV SCH ×2 (11:23→21:37)
[2019-12-02] MEDS: fentaNYL Drip 2500mCg/250mlNS 250 ML IV SCH ×2 (11:49→20:32)
[2019-12-02] MEDS: PROPOFOL 100 ML IV SCH (13:32)
[2019-12-02 17:46] LABS: Basophils # (auto) 0 10 ^3/uL (0-0.2); Lymphocytes # (auto) 0.7 10 ^3/uL (0.4-5.4); Monocytes % (auto) 13.1 % (0.0-12.0); Nucleated Red Blood Cells % 0.1 %; White Blood Cell 7.7 10^3/uL (4.4-10.8)
[2019-12-02 17:48] LABS: Basophils % (auto) 0.4 % (0.0-2.0); Eosinophils # (auto) 0.4 10 ^3/uL (0-0.8); Eosinophils % (auto) 4.6 % (0.0-7.0); Hematocrit 37.5 % (41.0-53.0); Hemoglobin 12.6 g/dL (13.5-17.5); Mean Corpuscular Hemoglobin 34.4 pg (28.0-32.0); Mean Corpuscular Hgb Conc. 33.7 g/dL (32.0-36.0); Mean Corpuscular Volume 102.1 fL (80.0-100.0); Neutrophils # (auto) 5.6 10 ^3/uL (1.6-8.6); Neutrophils % (auto) 72.9 % (37.0-80.0); Platelet Count (auto) 203 10^3/uL (140-450); Red Blood Cells 3.68 10^6/uL (4.5-5.90); Red Cell Distribution Width 12.8 % (11.8-14.3)
[2019-12-02] MEDS: HEPARIN DRIP/D5W 100UNITS/ML 250 ML IV SCH (18:06)
[2019-12-02 18:07] LABS: INR 1.2 (0.9-1.15); Partial Thromboplastin Time 30.5 sec (23.64-32.05)
[2019-12-02 19:33] LABS: Magnesium 1.9 mg/dL (1.6-2.6)
[2019-12-02] MEDS ORDERED: TPN*HIGH CONC* PER PHARMACY IV NR ×12 (20:00)
[2019-12-02] MEDS: ATORVASTATIN 20 MG TAB PO SCH (21:36)
[2019-12-02] MEDS: chlordiazePOXIDE HCL 25 MG CAP GT SCH (21:36)
[2019-12-02] MEDS: POTASSIUM CHL 20MEQ/100ML 100 ML IV SCH ×2 (21:37→23:30)
[2019-12-02] MEDS ORDERED: IOHEXOL 350 MG/ML 100ML IJ ONE (21:50)
[2019-12-02] MEDS ORDERED: ENOXAPARIN SOD 40 MG/0.4 ML SYRINGE SC SCH (22:00)
[2019-12-02 23:57] LABS: INR 1.2 (0.9-1.15); Partial Thromboplastin Time 61.6 sec (23.64-32.05)
[2019-12-03] VITALS (98 sets, daily range): BP systolic 86–155; BP diastolic 34–91
[2019-12-03] MEDS: ALBUTEROL SULF 2.5 MG/0.5ML(0.5%) NEB SOLN NEB SCH ×6 (02:28→22:28)
[2019-12-03] MEDS: IPRATROPIUM BROM 0.5 MG/2.5ML INH SOL NEB SCH ×6 (02:28→22:28)
[2019-12-03] MEDS: ACETYLCYSTEINE 20%(200MG/ML) SOL 4ML NEB SCH ×3 (05:50→22:28)
[2019-12-03] MEDS: InsuLIN REG 1unit/0.01ml Soln (100units/ml) SC SCH ×4 (06:00→18:36)
[2019-12-03] MEDS: ACCU-CHEK COMFORT CURVE STRIP VI SCH ×4 (06:00→18:00)
[2019-12-03] MEDS: chlordiazePOXIDE HCL 25 MG CAP GT SCH ×3 (06:00→22:15)
[2019-12-03] MEDS: PIPERACILLIN-TAZOB 3.375GM 100 ML IV SCH ×3 (06:00→17:58)
[2019-12-03] MEDS: FUROSEMIDE 100 MG/10ML VIAL IV SCH (06:00)
[2019-12-03 06:16] LABS: INR 1.19 (0.9-1.15); Partial Thromboplastin Time 41.3 sec (23.64-32.05)
[2019-12-03 06:29] LABS: Potassium 3.8 mmol/L (3.5-5.1)
[2019-12-03 06:42] LABS: BUN/Creatinine Ratio 17.2; Bilirubin, Total 0.6 mg/dL (0.2-1.0); Calcium 8.1 mg/dL (8.5-10.1); Phosphorus 3.9 mg/dL (2.5-4.90); Total Protein 6.3 g/dL (6.4-8.2)
[2019-12-03] MEDS ORDERED: EPINEPHrine HCL 1 MG/1 ML AMP ONE (08:22)
[2019-12-03] MEDS ORDERED: SODIUM CHLORIDE LOCK 0 ML ONE (08:22)
[2019-12-03] MEDS ORDERED: LIDOCAINE 2%HCL (LOCAL ANESTH.) INJ 20ML MDV ONE (08:22)
[2019-12-03] MEDS ORDERED: LIDOCAINE HCL 2% TOP JELLY 5ML TOP ONE (08:23)
[2019-12-03] MEDS ORDERED: ACETYLCYSTEINE 10 %(100MG/ML) SOL 4ML NEB ONE (09:15)
[2019-12-03] MEDS: LINEZOLID 600MG/300ML 300 ML IV SCH ×2 (10:30→22:15)
[2019-12-03] MEDS: PANTOPRAZOLE 40 MG/10 ML VIAL INJ IV SCH (10:30)
[2019-12-03] MEDS: METOCLOPRAMIDE HCL 5MG/ml INJ 2ml VIAL IV SCH ×2 (11:00→22:15)
[2019-12-03] MEDS: SODIUM CHLOR 0.9% PF (SALINE LOCK) 10ML VIAL/SYR IV SCH ×2 (11:00→22:15)
[2019-12-03] MEDS: HEPARIN DRIP/D5W 100UNITS/ML 250 ML IV SCH ×2 (11:31→18:00)
[2019-12-03] MEDS ORDERED: SODIUM BICARBONATE 8.4 % INJ 50ML VIAL IV ONE (13:17)
[2019-12-03] MEDS ORDERED: ROCURONIUM 10MG/ML 10ML VIAL IV ONE (13:17)
[2019-12-03] MEDS: PROPOFOL 100 ML IV SCH (13:32)
[2019-12-03] MEDS ORDERED: DexAMETHasone SOD PHOS 4 MG/1ML SDV INJ IV ONE (16:15)
[2019-12-03] MEDS ORDERED: GLYCOPYRROLATE 0.2 MG/ML 1ML VIAL IV ONE (16:15)
[2019-12-03] MEDS: NOREPINEPHRINE 8 MG/250ML KIT 250 ML IV SCH ×2 (17:03→21:18)
[2019-12-03] MEDS: FUROSEMIDE 40 MG/4 ML VIAL IV SCH ×2 (17:59→18:00)
[2019-12-03] MEDS ORDERED: TPN*HIGH CONC* PER PHARMACY IV NR ×13 (20:00)
[2019-12-03] MEDS: fentaNYL Drip 2500mCg/250mlNS 250 ML IV SCH (22:15)
[2019-12-03] MEDS: ATORVASTATIN 20 MG TAB PO SCH (22:15)
[2019-12-03] MEDS: MIDAZOLAM DRIP 50 mg/50mL 50 ML IV SCH (22:15)
[2019-12-04] VITALS (96 sets, daily range): BP systolic 91–145; BP diastolic 43–83
[2019-12-04] MEDS: PIPERACILLIN-TAZOB 3.375GM 100 ML IV SCH ×4 (00:20→17:57)
[2019-12-04] MEDS: ACCU-CHEK COMFORT CURVE STRIP VI SCH ×4 (00:26→17:55)
[2019-12-04] MEDS: InsuLIN REG 1unit/0.01ml Soln (100units/ml) SC SCH ×4 (00:28→18:20)
[2019-12-04 02:06] LABS: INR 1.2 (0.9-1.15); Partial Thromboplastin Time 27.9 sec (23.64-32.05)
[2019-12-04 02:07] LABS: Albumin 2.1 g/dL (3.4-5.0); BUN/Creatinine Ratio 21.9; Magnesium 2.3 mg/dL (1.6-2.6); Potassium 4.5 mmol/L (3.5-5.1)
[2019-12-04 02:15] LABS: Bilirubin, Total 0.5 mg/dL (0.2-1.0); Phosphorus 3.6 mg/dL (2.5-4.90); Total Protein 6.8 g/dL (6.4-8.2)
[2019-12-04] MEDS: HEPARIN DRIP/D5W 100UNITS/ML 250 ML IV SCH ×2 (03:00→19:25)
[2019-12-04 04:13] LABS: Eosinophils # (auto) 0 10 ^3/uL (0-0.8); Lymphocytes # (auto) 0.4 10 ^3/uL (0.4-5.4); Neutrophils # (auto) 8.1 10 ^3/uL (1.6-8.6); White Blood Cell 9.1 10^3/uL (4.4-10.8)
[2019-12-04 04:14] LABS: Basophils # (auto) 0 10 ^3/uL (0-0.2); Basophils % (auto) 0.4 % (0.0-2.0); Eosinophils % (auto) 0.4 % (0.0-7.0); Hematocrit 39.7 % (41.0-53.0); Hemoglobin 13.2 g/dL (13.5-17.5); Lymphocytes % (auto) 4.1 % (10.0-50.0); Mean Corpuscular Hemoglobin 34.5 pg (28.0-32.0); Mean Corpuscular Hgb Conc. 33.3 g/dL (32.0-36.0); Mean Corpuscular Volume 103.5 fL (80.0-100.0); Monocytes # (auto) 0.5 10 ^3/uL (0-1.3); Monocytes % (auto) 5.8 % (0.0-12.0); Neutrophils % (auto) 89.3 % (37.0-80.0); Nucleated Red Blood Cells % 0.1 %; Platelet Count (auto) 209 10^3/uL (140-450); Red Blood Cells 3.83 10^6/uL (4.5-5.90); Red Cell Distribution Width 12.8 % (11.8-14.3)
[2019-12-04] MEDS: ALBUTEROL SULF 2.5 MG/0.5ML(0.5%) NEB SOLN NEB SCH ×6 (04:46→22:22)
[2019-12-04] MEDS: IPRATROPIUM BROM 0.5 MG/2.5ML INH SOL NEB SCH ×6 (04:46→22:22)
[2019-12-04] MEDS: chlordiazePOXIDE HCL 25 MG CAP GT SCH ×3 (06:24→22:22)
[2019-12-04] MEDS: FUROSEMIDE 40 MG/4 ML VIAL IV SCH ×2 (06:25→18:04)
[2019-12-04] MEDS: ACETYLCYSTEINE 20%(200MG/ML) SOL 4ML NEB SCH ×3 (06:46→22:23)
[2019-12-04] MEDS: fentaNYL Drip 2500mCg/250mlNS 250 ML IV SCH ×2 (07:07→14:58)
[2019-12-04] MEDS: MIDAZOLAM DRIP 50 mg/50mL 50 ML IV SCH ×4 (07:08→22:24)
[2019-12-04] MEDS: LINEZOLID 600MG/300ML 300 ML IV SCH ×2 (10:22→22:22)
[2019-12-04] MEDS: PANTOPRAZOLE 40 MG/10 ML VIAL INJ IV SCH (10:25)
[2019-12-04] MEDS: SODIUM CHLOR 0.9% PF (SALINE LOCK) 10ML VIAL/SYR IV SCH ×2 (10:26→22:22)
[2019-12-04] MEDS: METOCLOPRAMIDE HCL 5MG/ml INJ 2ml VIAL IV SCH ×2 (10:26→22:22)
[2019-12-04 10:31] LABS: INR 1.17 (0.9-1.15); Partial Thromboplastin Time 41.3 sec (23.64-32.05)
[2019-12-04] MEDS ORDERED: HEPARIN DRIP/D5W 100UNITS/ML 250 ML IV SCH (11:30)
[2019-12-04] MEDS: PROPOFOL 100 ML IV SCH (13:32)
[2019-12-04 17:49] LABS: INR 1.18 (0.9-1.15); Partial Thromboplastin Time 49.1 sec (23.64-32.05)
[2019-12-04] MEDS ORDERED: FUROSEMIDE INJECTION 10 ML ONE (18:02)
[2019-12-04] MEDS ORDERED: TPN*HIGH CONC* PER PHARMACY IV NR ×11 (20:00)
[2019-12-04] MEDS: NOREPINEPHRINE 8 MG/250ML KIT 250 ML IV SCH (21:18)
[2019-12-04] MEDS: ATORVASTATIN 20 MG TAB PO SCH (22:21)
[2019-12-05] VITALS (91 sets, daily range): BP systolic 79–140; BP diastolic 37–86
[2019-12-05] MEDS: PIPERACILLIN-TAZOB 3.375GM 100 ML IV SCH ×5 (00:46→23:46)
[2019-12-05 02:25] LABS: Albumin 2.4 g/dL (3.4-5.0); Calcium 8.2 mg/dL (8.5-10.1); Magnesium 2.5 mg/dL (1.6-2.6); Potassium 3.8 mmol/L (3.5-5.1)
[2019-12-05] MEDS: ALBUTEROL SULF 2.5 MG/0.5ML(0.5%) NEB SOLN NEB SCH ×6 (02:26→22:12)
[2019-12-05] MEDS: IPRATROPIUM BROM 0.5 MG/2.5ML INH SOL NEB SCH ×6 (02:26→22:12)
[2019-12-05 02:28] LABS: Bilirubin, Total 0.4 mg/dL (0.2-1.0); Phosphorus 4.1 mg/dL (2.5-4.90); Total Protein 7.2 g/dL (6.4-8.2)
[2019-12-05] MEDS: chlordiazePOXIDE HCL 25 MG CAP GT SCH ×3 (05:51→21:58)
[2019-12-05] MEDS: InsuLIN REG 1unit/0.01ml Soln (100units/ml) SC SCH ×5 (06:00→23:43)
[2019-12-05] MEDS: HEPARIN DRIP/D5W 100UNITS/ML 250 ML IV SCH ×3 (06:08→20:13)
[2019-12-05] MEDS: ACCU-CHEK COMFORT CURVE STRIP VI SCH ×5 (06:13→23:39)
[2019-12-05] MEDS: ACETYLCYSTEINE 20%(200MG/ML) SOL 4ML NEB SCH ×3 (06:30→22:12)
[2019-12-05] MEDS: MIDAZOLAM DRIP 50 mg/50mL 50 ML IV SCH ×4 (08:12→21:42)
[2019-12-05 09:41] LABS: INR 1.18 (0.9-1.15); Partial Thromboplastin Time 62.6 sec (23.64-32.05)
[2019-12-05] MEDS: PANTOPRAZOLE 40 MG/10 ML VIAL INJ IV SCH (10:37)
[2019-12-05] MEDS: METOCLOPRAMIDE HCL 5MG/ml INJ 2ml VIAL IV SCH ×2 (10:37→21:57)
[2019-12-05] MEDS: LINEZOLID 600MG/300ML 300 ML IV SCH ×2 (10:37→21:57)
[2019-12-05] MEDS: SODIUM CHLOR 0.9% PF (SALINE LOCK) 10ML VIAL/SYR IV SCH ×2 (10:47→21:58)
[2019-12-05] MEDS: fentaNYL Drip 2500mCg/250mlNS 250 ML IV SCH ×2 (12:32→20:12)
[2019-12-05] MEDS: PROPOFOL 100 ML IV SCH (13:32)
[2019-12-05 15:19] LABS: INR 1.17 (0.9-1.15); Partial Thromboplastin Time 63.7 sec (23.64-32.05)
[2019-12-05] MEDS ORDERED: FUROSEMIDE 20 MG/2 ML VIAL IV ONE (18:45)
[2019-12-05] MEDS ORDERED: TPN*HIGH CONC* PER PHARMACY IV NR ×11 (20:00)
[2019-12-05] MEDS: NOREPINEPHRINE 8 MG/250ML KIT 250 ML IV SCH (21:18)
[2019-12-05] MEDS: ATORVASTATIN 20 MG TAB PO SCH (21:58)
[2019-12-06] VITALS (103 sets, daily range): BP systolic 88–205; BP diastolic 46–118
[2019-12-06] MEDS: MIDAZOLAM DRIP 50 mg/50mL 50 ML IV SCH ×4 (01:00→14:00)
[2019-12-06] MEDS: ALBUTEROL SULF 2.5 MG/0.5ML(0.5%) NEB SOLN NEB SCH ×6 (02:08→22:13)
[2019-12-06] MEDS: IPRATROPIUM BROM 0.5 MG/2.5ML INH SOL NEB SCH ×6 (02:08→22:13)
[2019-12-06] MEDS: fentaNYL Drip 2500mCg/250mlNS 250 ML IV SCH ×3 (04:57→22:01)
[2019-12-06] MEDS: ACCU-CHEK COMFORT CURVE STRIP VI SCH ×3 (05:58→18:29)
[2019-12-06] MEDS: PIPERACILLIN-TAZOB 3.375GM 100 ML IV SCH ×3 (05:58→18:00)
[2019-12-06] MEDS: InsuLIN REG 1unit/0.01ml Soln (100units/ml) SC SCH ×3 (05:58→18:00)
[2019-12-06] MEDS: chlordiazePOXIDE HCL 25 MG CAP GT SCH ×3 (05:58→21:40)
[2019-12-06] MEDS: ACETYLCYSTEINE 20%(200MG/ML) SOL 4ML NEB SCH ×3 (06:15→22:13)
[2019-12-06 06:40] LABS: INR 1.18 (0.9-1.15)
[2019-12-06 06:46] LABS: Partial Thromboplastin Time 75.2 sec (23.64-32.05)
[2019-12-06 07:03] LABS: Albumin 2.5 g/dL (3.4-5.0); BUN/Creatinine Ratio 26.4; Bilirubin, Total 0.5 mg/dL (0.2-1.0); Calcium 8.2 mg/dL (8.5-10.1); Magnesium 2.4 mg/dL (1.6-2.6); Phosphorus 4.6 mg/dL (2.5-4.90); Total Protein 6.9 g/dL (6.4-8.2)
[2019-12-06] MEDS: LINEZOLID 600MG/300ML 300 ML IV SCH ×2 (10:41→21:40)
[2019-12-06] MEDS: METOCLOPRAMIDE HCL 5MG/ml INJ 2ml VIAL IV SCH ×2 (10:41→21:40)
[2019-12-06] MEDS: SODIUM CHLOR 0.9% PF (SALINE LOCK) 10ML VIAL/SYR IV SCH ×2 (10:41→21:42)
[2019-12-06] MEDS: PANTOPRAZOLE 40 MG/10 ML VIAL INJ IV SCH (10:41)
[2019-12-06] MEDS: PROPOFOL 100 ML IV SCH (11:29)
[2019-12-06] MEDS: HEPARIN DRIP/D5W 100UNITS/ML 250 ML IV SCH (11:29)
[2019-12-06] MEDS: DexMEDEtomidine 400 MCG in D5W 5% 96 ML IV SCH (18:29)
[2019-12-06] MEDS: ACETAMINOPHEN 650 mg PER 20 mL UD GT PRN (18:30)
[2019-12-06] MEDS ORDERED: TPN*HIGH CONC* PER PHARMACY IV NR ×10 (20:00)
[2019-12-06] MEDS: NOREPINEPHRINE 8 MG/250ML KIT 250 ML IV SCH (21:18)
[2019-12-06] MEDS: ATORVASTATIN 20 MG TAB PO SCH (21:41)
[2019-12-07] VITALS (84 sets, daily range): BP systolic 101–200; BP diastolic 27–122
[2019-12-07] MEDS: PIPERACILLIN-TAZOB 3.375GM 100 ML IV SCH ×4 (00:07→17:53)
[2019-12-07] MEDS: ACCU-CHEK COMFORT CURVE STRIP VI SCH ×4 (00:09→17:54)
[2019-12-07] MEDS: DexMEDEtomidine 400 MCG in D5W 5% 96 ML IV SCH (00:55)
[2019-12-07] MEDS: IPRATROPIUM BROM 0.5 MG/2.5ML INH SOL NEB SCH ×6 (03:07→22:04)
[2019-12-07] MEDS: ALBUTEROL SULF 2.5 MG/0.5ML(0.5%) NEB SOLN NEB SCH ×6 (03:07→22:04)
[2019-12-07] MEDS: chlordiazePOXIDE HCL 25 MG CAP GT SCH ×3 (05:56→22:00)
[2019-12-07] MEDS: InsuLIN REG 1unit/0.01ml Soln (100units/ml) SC SCH ×4 (05:58→17:57)
[2019-12-07] MEDS: ACETYLCYSTEINE 20%(200MG/ML) SOL 4ML NEB SCH ×3 (06:05→22:04)
[2019-12-07 06:31] LABS: Potassium 4.2 mmol/L (3.5-5.1)
[2019-12-07 06:45] LABS: Albumin 2.5 g/dL (3.4-5.0); BUN/Creatinine Ratio 25.6; Bilirubin, Total 0.6 mg/dL (0.2-1.0); Calcium 8.6 mg/dL (8.5-10.1); Magnesium 2.5 mg/dL (1.6-2.6); Phosphorus 4.2 mg/dL (2.5-4.90); Total Protein 7.3 g/dL (6.4-8.2)
[2019-12-07] MEDS: fentaNYL Drip 2500mCg/250mlNS 250 ML IV SCH (07:46)
[2019-12-07] MEDS: SODIUM CHLOR 0.9% PF (SALINE LOCK) 10ML VIAL/SYR IV SCH ×2 (10:00→22:00)
[2019-12-07] MEDS: PANTOPRAZOLE 40 MG/10 ML VIAL INJ IV SCH (10:44)
[2019-12-07] MEDS: ASPirin 325 MG TAB PO SCH (10:44)
[2019-12-07] MEDS: METOCLOPRAMIDE HCL 5MG/ml INJ 2ml VIAL IV SCH ×2 (10:44→22:00)
[2019-12-07] MEDS: LINEZOLID 600MG/300ML 300 ML IV SCH ×2 (10:44→22:00)
[2019-12-07] MEDS ORDERED: FUROSEMIDE 100 MG/10ML VIAL IV ONE (12:30)
[2019-12-07] MEDS ORDERED: DexAMETHasone SOD PHOS 4 MG/1ML SDV INJ IM ONE (12:30)
[2019-12-07] MEDS ORDERED: GLYCOPYRROLATE 0.2 MG/ML 1ML VIAL IV ONE (12:30)
[2019-12-07] MEDS: PROPOFOL 100 ML IV SCH (13:32)
[2019-12-07] MEDS: ONDANSETRON HCL 4 MG/2 ML VIAL IV PRN (18:57)
[2019-12-07] MEDS ORDERED: TPN*HIGH CONC* PER PHARMACY IV NR ×10 (20:00)
[2019-12-07] MEDS: NOREPINEPHRINE 8 MG/250ML KIT 250 ML IV SCH (21:18)
[2019-12-07] MEDS: ATORVASTATIN 20 MG TAB PO SCH (22:00)
[2019-12-08] VITALS (13 sets, daily range): BP systolic 119–164; BP diastolic 73–112
[2019-12-08] MEDS: ACCU-CHEK COMFORT CURVE STRIP VI SCH ×5 (00:15→22:00)
[2019-12-08] MEDS: PIPERACILLIN-TAZOB 3.375GM 100 ML IV SCH ×4 (00:15→18:05)
[2019-12-08] MEDS: InsuLIN REG 1unit/0.01ml Soln (100units/ml) SC SCH ×5 (00:16→22:00)
[2019-12-08] MEDS: ONDANSETRON HCL 4 MG/2 ML VIAL IV PRN ×3 (01:00→13:15)
[2019-12-08] MEDS: DexMEDEtomidine 400 MCG in D5W 5% 96 ML IV SCH (01:09)
[2019-12-08] MEDS: IPRATROPIUM BROM 0.5 MG/2.5ML INH SOL NEB SCH ×6 (02:08→22:43)
[2019-12-08] MEDS: ALBUTEROL SULF 2.5 MG/0.5ML(0.5%) NEB SOLN NEB SCH ×6 (02:08→22:43)
[2019-12-08] MEDS: chlordiazePOXIDE HCL 25 MG CAP GT SCH ×2 (04:58→14:00)
[2019-12-08 05:37] LABS: Albumin 2.8 g/dL (3.4-5.0); Calcium 8.6 mg/dL (8.5-10.1); Magnesium 2.4 mg/dL (1.6-2.6); Potassium 4.2 mmol/L (3.5-5.1)
[2019-12-08 05:40] LABS: BUN/Creatinine Ratio 25.4; Bilirubin, Total 0.6 mg/dL (0.2-1.0); Phosphorus 3.7 mg/dL (2.5-4.90); Total Protein 7.6 g/dL (6.4-8.2)
[2019-12-08] MEDS: ACETYLCYSTEINE 20%(200MG/ML) SOL 4ML NEB SCH ×3 (06:00→22:43)
[2019-12-08] MEDS: PANTOPRAZOLE 40 MG/10 ML VIAL INJ IV SCH (09:47)
[2019-12-08] MEDS: ASPirin 325 MG TAB PO SCH (09:47)
[2019-12-08] MEDS: SODIUM CHLOR 0.9% PF (SALINE LOCK) 10ML VIAL/SYR IV SCH ×2 (09:47→22:00)
[2019-12-08] MEDS: METOCLOPRAMIDE HCL 5MG/ml INJ 2ml VIAL IV SCH ×2 (09:47→22:57)
[2019-12-08] MEDS: LINEZOLID 600MG/300ML 300 ML IV SCH ×2 (09:48→22:57)
[2019-12-08] MEDS: MIDAZOLAM DRIP 50 mg/50mL 50 ML IV SCH (10:20)
[2019-12-08] MEDS: fentaNYL Drip 2500mCg/250mlNS 250 ML IV SCH (10:49)
[2019-12-08] MEDS ORDERED: ALPRAZolam 0.5 MG TAB PO PRN (14:45)
[2019-12-08] MEDS ORDERED: DEXTROSE (50%) 50ML SYRG IV PRN (15:30)
[2019-12-08] MEDS ORDERED: TPN*HIGH CONC* PER PHARMACY IV NR ×11 (20:00)
[2019-12-08] MEDS ORDERED: chlordiazePOXIDE HCL 25 MG CAP PO SCH (22:00)
[2019-12-08] MEDS: GABAPENTIN 300 MG CAP PO SCH (22:55)
[2019-12-08] MEDS: DOCUSATE SOD 100 MG CAP PO SCH (22:56)
[2019-12-08] MEDS: ATORVASTATIN 20 MG TAB PO SCH (22:56)
[2019-12-09] MEDS: PIPERACILLIN-TAZOB 3.375GM 100 ML IV SCH ×4 (00:10→17:48)
[2019-12-09 05:00] VITALS: BP 167/88
[2019-12-09] MEDS: GABAPENTIN 300 MG CAP PO SCH ×3 (06:23→23:01)
[2019-12-09] MEDS: ALBUTEROL SULF 2.5 MG/0.5ML(0.5%) NEB SOLN NEB SCH ×6 (06:35→23:42)
[2019-12-09] MEDS: IPRATROPIUM BROM 0.5 MG/2.5ML INH SOL NEB SCH ×6 (06:36→23:42)
[2019-12-09] MEDS: ACETYLCYSTEINE 20%(200MG/ML) SOL 4ML NEB SCH ×3 (06:36→23:42)
[2019-12-09 06:39] LABS: Albumin 3.1 g/dL (3.4-5.0); Calcium 8.9 mg/dL (8.5-10.1); Magnesium 2.3 mg/dL (1.6-2.6); Potassium 3.8 mmol/L (3.5-5.1)
[2019-12-09] MEDS: InsuLIN REG 1unit/0.01ml Soln (100units/ml) SC SCH ×4 (06:40→22:00)
[2019-12-09] MEDS: ACCU-CHEK COMFORT CURVE STRIP VI SCH ×4 (06:40→22:00)
[2019-12-09 06:44] LABS: BUN/Creatinine Ratio 17.1; Bilirubin, Total 1.1 mg/dL (0.2-1.0); Phosphorus 3.5 mg/dL (2.5-4.90); Pre Albumin 26.6 mg/dL (20.0-40.0); Total Protein 7.9 g/dL (6.4-8.2)
[2019-12-09 09:00] VITALS: BP 149/84
[2019-12-09] MEDS: PANTOPRAZOLE 40 MG/10 ML VIAL INJ IV SCH (10:12)
[2019-12-09] MEDS: LINEZOLID 600MG/300ML 300 ML IV SCH ×2 (10:12→23:05)
[2019-12-09] MEDS: ASPirin 325 MG TAB PO SCH (10:13)
[2019-12-09] MEDS: METOCLOPRAMIDE HCL 5MG/ml INJ 2ml VIAL IV SCH ×2 (10:13→23:04)
[2019-12-09] MEDS: DOCUSATE SOD 100 MG CAP PO SCH ×2 (10:14→23:03)
[2019-12-09] MEDS: SODIUM CHLOR 0.9% PF (SALINE LOCK) 10ML VIAL/SYR IV SCH ×2 (10:16→22:00)
[2019-12-09 13:00] VITALS: BP 143/76
[2019-12-09 17:01] VITALS: BP 153/88
[2019-12-09 21:32] VITALS: BP 153/88
[2019-12-09 22:00] VITALS: BP 140/87
[2019-12-09] MEDS: ATORVASTATIN 20 MG TAB PO SCH (23:03)
[2019-12-10] MEDS: PIPERACILLIN-TAZOB 3.375GM 100 ML IV SCH ×4 (00:30→19:00)
[2019-12-10] MEDS: ALBUTEROL SULF 2.5 MG/0.5ML(0.5%) NEB SOLN NEB SCH ×6 (02:52→22:29)
[2019-12-10] MEDS: IPRATROPIUM BROM 0.5 MG/2.5ML INH SOL NEB SCH ×6 (02:52→22:30)
[2019-12-10 05:43] VITALS: BP 124/76
[2019-12-10] MEDS: ACETYLCYSTEINE 20%(200MG/ML) SOL 4ML NEB SCH ×3 (06:08→18:55)
[2019-12-10] MEDS: GABAPENTIN 300 MG CAP PO SCH ×3 (06:10→22:47)
[2019-12-10] MEDS: InsuLIN REG 1unit/0.01ml Soln (100units/ml) SC SCH ×4 (06:48→22:00)
[2019-12-10] MEDS: ACCU-CHEK COMFORT CURVE STRIP VI SCH ×4 (06:48→22:47)
[2019-12-10 09:02] VITALS: BP 151/83
[2019-12-10] MEDS: ASPirin 325 MG TAB PO SCH (10:05)
[2019-12-10] MEDS: PANTOPRAZOLE 40 MG/10 ML VIAL INJ IV SCH (10:05)
[2019-12-10] MEDS: DOCUSATE SOD 100 MG CAP PO SCH ×2 (10:05→22:46)
[2019-12-10] MEDS: LINEZOLID 600MG/300ML 300 ML IV SCH ×2 (10:05→22:46)
[2019-12-10] MEDS: METOCLOPRAMIDE HCL 5MG/ml INJ 2ml VIAL IV SCH ×2 (10:05→22:45)
[2019-12-10] MEDS: SODIUM CHLOR 0.9% PF (SALINE LOCK) 10ML VIAL/SYR IV SCH ×2 (10:06→22:45)
[2019-12-10 12:00] VITALS: BP 122/86
[2019-12-10] MEDS ORDERED: ACETAMINOPHEN 325 MG TAB PO PRN ×2 (13:00→13:45)
[2019-12-10 17:11] VITALS: BP 157/72
[2019-12-10] MEDS: ATORVASTATIN 20 MG TAB PO SCH (22:46)
[2019-12-10 23:09] VITALS: BP 135/84
[2019-12-11] MEDS: PIPERACILLIN-TAZOB 3.375GM 100 ML IV SCH ×3 (00:36→12:00)
[2019-12-11] MEDS: IPRATROPIUM BROM 0.5 MG/2.5ML INH SOL NEB SCH ×3 (01:56→09:57)
[2019-12-11] MEDS: ALBUTEROL SULF 2.5 MG/0.5ML(0.5%) NEB SOLN NEB SCH ×3 (01:56→09:57)
[2019-12-11 05:15] VITALS: BP 120/75
[2019-12-11] MEDS: InsuLIN REG 1unit/0.01ml Soln (100units/ml) SC SCH ×2 (06:08→12:00)
[2019-12-11] MEDS: GABAPENTIN 300 MG CAP PO SCH (06:18)
[2019-12-11] MEDS: ACCU-CHEK COMFORT CURVE STRIP VI SCH ×2 (06:19→11:30)
[2019-12-11] MEDS: ACETYLCYSTEINE 20%(200MG/ML) SOL 4ML NEB SCH (06:29)
[2019-12-11 09:13] VITALS: BP 138/77
[2019-12-11] MEDS: DOCUSATE SOD 100 MG CAP PO SCH (10:18)
[2019-12-11] MEDS: ASPirin 325 MG TAB PO SCH (10:18)
[2019-12-11] MEDS: SODIUM CHLOR 0.9% PF (SALINE LOCK) 10ML VIAL/SYR IV SCH (10:19)
[2019-12-11] MEDS: METOCLOPRAMIDE HCL 5MG/ml INJ 2ml VIAL IV SCH (10:19)
[2019-12-11] MEDS: PANTOPRAZOLE 40 MG/10 ML VIAL INJ IV SCH (10:19)
[2019-12-11] MEDS: LINEZOLID 600MG/300ML 300 ML IV SCH (10:19)
[2019-12-11 12:22] VITALS: BP 125/81
[2019-12-12] MEDS ORDERED: GABAPENTIN 300 MG CAP PO SCH (22:00)
== END 2019-12-11 14:15 | disposition home or self-care (01) | DRG 353 ==
LOC: ER 07:05 → CENTRAL 07:06 → ICU WEST 11-24 11:40 → WEST WING 12-03 16:10 → ICU WEST 12-03 16:39 → CENTRAL 12-08 11:15 → TELE-CENTR 12-08 11:43
PROVIDERS: ADMIT Nurse Practitioner Acute Care; ATTEND Family Medicine
PROC: 0BJ08ZZ Inspection of Tracheobronchial Tree, Via Natural or Artificial Opening Endoscopic (ICD-10-PCS; 2019-11-24)
PROC: 5A1955Z Respiratory Ventilation, Greater than 96 Consecutive Hours (ICD-10-PCS; 2019-11-24)
PROC: 0BH17EZ Insertion of Endotracheal Airway into Trachea, Via Natural or Artificial Opening (ICD-10-PCS; 2019-11-24)
PROC: 0WQF0ZZ Repair Abdominal Wall, Open Approach (ICD-10-PCS; principal; 2019-11-24 09:18)
PROC: 0B9M8ZZ Drainage of Bilateral Lungs, Via Natural or Artificial Opening Endoscopic (ICD-10-PCS; 2019-11-27)
PROC: 02HV33Z Insertion of Infusion Device into Superior Vena Cava, Percutaneous Approach (ICD-10-PCS; 2019-11-29)
PROC: 0B9G8ZX Drainage of Left Upper Lung Lobe, Via Natural or Artificial Opening Endoscopic, Diagnostic (ICD-10-PCS; 2019-12-03)
DX: K43.9 Ventral hernia without obstruction or gangrene (principal); J96.02 Acute respiratory failure with hypercapnia; J96.01 Acute respiratory failure with hypoxia; J18.9 Pneumonia, unspecified organism; J44.1 Chronic obstructive pulmonary disease with (acute) exacerbation; Z68.41 Body mass index [BMI] 40.0-44.9, adult; J81.1 Chronic pulmonary edema; E87.2 Acidosis; J44.0 Chronic obstructive pulmonary disease with (acute) lower respiratory infection; Z99.11 Dependence on respirator [ventilator] status; E78.00 Pure hypercholesterolemia, unspecified; F17.210 Nicotine dependence, cigarettes, uncomplicated; I10 Essential (primary) hypertension; E66.01 Morbid (severe) obesity due to excess calories; F10.20 Alcohol dependence, uncomplicated; Y90.0 Blood alcohol level of less than 20 mg/100 ml; J39.8 Other specified diseases of upper respiratory tract; K57.90 Diverticulosis of intestine, part unspecified, without perforation or abscess without bleeding; J32.8 Other chronic sinusitis; K08.9 Disorder of teeth and supporting structures, unspecified; K76.0 Fatty (change of) liver, not elsewhere classified; Z83.3 Family history of diabetes mellitus; Z80.9 Family history of malignant neoplasm, unspecified; Z79.899 Other long term (current) drug therapy; Z03.818 Encounter for observation for suspected exposure to other biological agents ruled out; Z80.0 Family history of malignant neoplasm of digestive organs
CPT/HCPCS: 36415; 36569; 36600; 70486; 71045; 71250; 71275; 74176; 74177; 80053; 80202; 81001; 82040; 82805; 82962; 83690; 83735; 84100; 84132; 84478; 85025; 85379; 85610; 85730; 87040; 87070; 87077; 87081; 87086; 87186; 87205; 87804; 87807; 92610; 93970; 93971; 94002; 94003; 94640; 97116; 97163; 97530; A4565; C9113; G0378; J0171; J0330; J0610; J0690; J1100; J1815; J2250; J2405; J2543; J2704; J3480; J7060; J7131

== ENCOUNTER 2020-04-09 11:42 | Emergency (ER) | payer SELFPAY ==
[~2020-04-09] VITALS: Ht 175.3 cm; Wt 124.7 kg
[~2020-04-09 11:42] MED LIST: ATOR10TA52 PO; ENAL2.5T7 PO
[2020-04-09 11:46] VITALS: BP 148/88
== END 2020-04-09 12:51 | disposition home or self-care (01) ==
LOC: ER 11:42
DX: R07.89 Other chest pain (principal); F17.210 Nicotine dependence, cigarettes, uncomplicated; I10 Essential (primary) hypertension; E78.5 Hyperlipidemia, unspecified; Z79.899 Other long term (current) drug therapy
CPT/HCPCS: 71046

== ENCOUNTER 2020-04-09 22:09 | Emergency (ER) | payer BC, MEDICAID ==
[~2020-04-09] VITALS: Ht 175.3 cm; Wt 127.0 kg
[2020-04-09 23:28] LABS: Basophils # (auto) 0.1 10 ^3/uL (0-0.2); Basophils % (auto) 0.9 % (0.0-2.0); Eosinophils # (auto) 0.1 10 ^3/uL (0-0.8); Eosinophils % (auto) 2.1 % (0.0-7.0); Hematocrit 49.7 % (41.0-53.0); Hemoglobin 17.1 g/dL (13.5-17.5); Lymphocytes # (auto) 1.8 10 ^3/uL (0.4-5.4); Lymphocytes % (auto) 25.6 % (10.0-50.0); Mean Corpuscular Hemoglobin 34.8 pg (28.0-32.0); Mean Corpuscular Hgb Conc. 34.3 g/dL (32.0-36.0); Mean Corpuscular Volume 101.4 fL (80.0-100.0); Monocytes % (auto) 15.1 % (0.0-12.0); Neutrophils # (auto) 3.9 10 ^3/uL (1.6-8.6); Neutrophils % (auto) 56.3 % (37.0-80.0); Nucleated Red Blood Cells % 0.1 %; Platelet Count (auto) 219 10^3/uL (140-450); Red Cell Distribution Width 13.1 % (11.8-14.3); White Blood Cell 6.9 10^3/uL (4.4-10.8)
[2020-04-09 23:42] LABS: Albumin 3.7 g/dL (3.4-5.0); Calcium 9.4 mg/dL (8.5-10.1); Potassium 3.9 mmol/L (3.5-5.1)
[2020-04-09 23:45] LABS: Bilirubin, Total 0.4 mg/dL (0.2-1.0); Total Protein 7.8 g/dL (6.4-8.2)
[2020-04-09 23:48] LABS: Partial Thromboplastin Time 26.4 sec (23.0-31.2)
[2020-04-10 01:25] LABS: Urine Bacteria FEW /hpf (None Seen); Urine Blood Negative /uL (Negative); Urine Mucus FEW (None Seen); Urine Specific Gravity 1.039 (1.001-1.035); Urine WBC 5 /hpf (0 - 3)
[2020-04-10 01:56] VITALS: BP 152/89
== END 2020-04-10 01:56 | disposition home or self-care (01) ==
LOC: ER 22:10
DX: K57.90 Diverticulosis of intestine, part unspecified, without perforation or abscess without bleeding (principal); E78.5 Hyperlipidemia, unspecified; I10 Essential (primary) hypertension; Z79.899 Other long term (current) drug therapy
CPT/HCPCS: 36415; 74176; 80053; 81001; 82150; 83690; 85025; 85610; 85730